=== PATIENT | female | born 1995 | race Caucasian/White ===

== ENCOUNTER 2018-06-20 23:05 | Emergency (ER) | payer OTHER ==
[2018-06-20 23:15] VITALS: BP 123/90; PULSE 88; TEMP 99.3; BMI 26.2
--- NOTE | 2018-06-20 23:38 | PDOC ---
History of Present Illness - General Chief Complaint: Sore Throat Stated Complaint: SORE THROAT Time Seen by Provider: 06/20/18 23:15 - History of Present Illness Initial Comments: 06/21/18 01:33 EDT This 23-year-old woman with no significant past medical history presents with persistent sore throat. She was seen by her doctor 4 days ago soon after onset of pain on swallowing. She believes that her PMD performed a quick strep test in the office which was negative. Because of previous history of strep pharyngitis, patient was given a 10 day course of amoxicillin. She has been taking this but feels that it is not effective. She denies contacts with anyone with strep pharyngitis; she has no contact with school-aged children. No recent travel reported. She is unsure whether she has had mononucleosis in the past. She denies gastrointestinal symptoms; there is been no recent rash or stiff neck. Patient is complaining of a significant amount of chest congestion. She states that she has not been coughing but feels like she is not getting full amount of air when she breathes. No history of asthma or other chronic lung problems Past History - Past Medical History Allergies/Adverse Reactions: Allergies Allergy/AdvReac Type Severity Reaction Status Date / Time No Known Allergies Allergy Verified 07/14/12 22:14 Home Medications: Ambulatory Orders Amoxicillin - [Amoxicillin 875mg Tablet -] 875 mg PO BID 06/20/18 Azithromycin [Zithromax 250mg Tablets -] 250 mg PO UTDICT #6 tab 06/20/18 COPD: No - Immunization History Td Vaccination: Yes Immunization Up to Date: Yes - Suicide/Smoking/Psychosocial Hx Smoking Status: No Smoking History: Never smoked Number of Cigarettes Smoked Daily: 0 Cigars Per Day: 0 Hx Alcohol Use: No Drug/Substance Use Hx: No Substance Use Type: None Hx Substance Use Treatment: No Review of Systems - Review of Systems Able to Perform ROS?: Yes Comments:: 12 point review of systems is negative except for what is noted in the history of present illness *Physical Exam - Vital Signs Last Vital Signs Temp Pulse Resp BP Pulse Ox 99.3 F 88 16 123/90 100 06/20/18 23:08 06/20/18 23:08 06/20/18 23:08 06/20/18 23:08 11/03/18 23:08 - Physical Exam Comments: GENERAL: Young adult female, alert and oriented 3, no acute distress HEAD: Normal with no signs of trauma. EYES: PERRLA, EOMI, sclera anicteric, conjunctiva clear. ENT: Ears cerumen bilaterally without visualization of the TM, nares patent, oropharynx mildly erythematous without exudate; tonsils are 2+ edematous bilaterally without exudates Uvula midline; no evidence of peritonsillar abscess NECK: Normal range of motion, supple. Bilateral mildly tender anterior cervical lymphadenopathy; no JVD, or masses. LUNGS: Breath sounds equal, clear to auscultation bilaterally. No wheezes, and no crackles. HEART:Regular rate and rhythm, normal S1 and S2 without murmur, rub or gallop. ABDOMEN:.normal bowel sounds No guarding,tenderness or rebound.No masses No distention. EXTREMITIES: Normal range of motion, no edema. No clubbing or cyanosis. No erythema, or tenderness. NEUROLOGICAL: Cranial nerves II through XII grossly intact. Normal speech. No focal neurological deficits. MUSCULOSKELETAL: Back non-tender to palpation, no CVA tenderness SKIN: Warm, Dry, normal turgor, no rashes or lesions noted. Medical Decision Making - Medical Decision Making This 23-year-old woman presents with persistent sore throat and chest congestion 4 days after starting amoxicillin prescribed by her PMD; exam shows some erythema and edema of her tonsils but no clinical evidence of strep throat. Quick strep test in her doctor's office was reportedly negative. Lung exam reveals no evidence of abnormal lung sounds and good air flow. Although the patient is taking amoxicillin 875 twice a day, she has persistent symptoms of tonsillitis and chest congestion. Possible of the patient has early atypical pneumonia or bronchitis. Will stop amoxicillin and start azithromycin course (5 day, "Z-Alcon") *DC/Admit/Observation/Transfer Diagnosis at time of Disposition: Bronchitis Pharyngitis Qualifiers: Pharyngitis/tonsillitis etiology: unspecified etiology Qualified Code(s): J02.9 - Acute pharyngitis, unspecified - Discharge Dispostion Disposition: HOME Condition at time of disposition: Stable - Prescriptions Prescriptions: Azithromycin [Zithromax 250mg Tablets -] 250 mg PO UTDICT #6 tab - Referrals Referrals: Harmony Dumont MD [Primary Care Provider] - 3 days - Patient Instructions Printed Discharge Instructions: DI for Pharyngitis/Tonsillopharyngitis -- Adult Additional Instructions: Stop amoxicillin Begin azithromycin Z-Alcon as directed Continue to drink plenty of fluids as tolerated Ibuprofen/naproxen/acetaminophen as needed for pain/fever Consider vaporizer/humidifier in room, especially at night Follow-up with your doctor within the next 2-3 days Return to ER if you have severe throat pain/high fever/difficulty swallowing - Post Discharge Activity
== END 2018-06-20 23:45 | disposition home or self-care (01) ==
LOC: FER 23:05
DX: J02.9 Acute pharyngitis, unspecified (principal); J40 Bronchitis, not specified as acute or chronic
CPT/HCPCS: 99281-25

== ENCOUNTER 2022-04-01 12:05 | Emergency (ER) | payer OTHER ==
[2022-04-01 12:14] VITALS: TEMP 99.7; BMI 23.2
[2022-04-01 13:03] VITALS: BP 105/66; PULSE 69; RESP 16
[2022-04-01 13:18] LABS: EPITHELIAL CELLS FEW /hpf
== END 2022-04-01 13:14 | disposition home or self-care (01) ==
LOC: FER 12:05
DX: Z3A.01 Less than 8 weeks gestation of pregnancy (principal)
CPT/HCPCS: 81003; 81015; 81025; 87086; 99282-25

== ENCOUNTER 2022-04-25 11:05 | Emergency (ER) | payer OTHER ==
[2022-04-25 11:11] VITALS: BP 119/87; PULSE 76; RESP 20; TEMP 99.3; BMI 26.4
[2022-04-25 11:54] LABS: HEMATOCRIT 40.3 % (32.4-45.2); HEMOGLOBIN 14.4 G/dL (10.7-15.3); MCH 31.9 pg (25.7-33.7); MCHC 35.8 g/dl (32.0-36.0); MEAN CELL VOLUME 88.9 fl (80-96); MEAN PLT VOLUME 9.3 fl (7.5-11.1); PLATELET COUNT 185.5 10^3/uL (134-434); RBC 4.53 10^6/uL (3.60-5.2); RDW 14.7 % (11.6-15.6); WHITE BLOOD COUNT 9.5 10^3/uL (4.0-10.8)
[2022-04-25 12:03] LABS: BILIRUBIN,TOTAL 0.6 mg/dl (0.2-1); CALCIUM 9.2 mg/dl (8.5-10); CREATININE 0.5 mg/dl (0.55-1.3); TOT PROT 7.4 g/dl (6.4-8.2)
[2022-04-25 12:13] LABS: PLATELET ESTIMATE ADEQUATE
[2022-04-25 12:21] LABS: EPITHELIAL CELLS RARE /hpf
== END 2022-04-25 14:47 | disposition home or self-care (01) ==
LOC: FER 11:05
DX: O26.851 Spotting complicating pregnancy, first trimester (principal); Z3A.10 10 weeks gestation of pregnancy
CPT/HCPCS: 36415; 76817-TC; 80053; 81003; 81015; 84702; 85027; 86850; 86900; 86901; 87086; 99284-25